=== PATIENT | male | born 1950 | race Hispanic/Latino ===

== ENCOUNTER 2020-11-30 10:47 | Inpatient (IN) | payer MEDICARE ==
[2020-11-26 13:16] LABS: BASOPHILS % 0.3 % (0.0-1.0); EOSINOPHILS # (AUTO) 0.1 (0.0-0.4); EOSINOPHILS % 0.6 % (0.0-6.0); HEMOGLOBIN 15.1 g/dL (14.0-18.0); LYMPHOCYTES # (AUTO) 1.5 (1.0-3.2); MEAN CORPUSCULAR HEMOGLOBIN 28.9 pg (28-32); MEAN CORPUSCULAR HGB CONC 35.1 g/dL (31-35); MEAN CORPUSCULAR VOLUME 82.2 fL (81-99); MONOCYTES # (AUTO) 0.8 (0.2-0.8); MONOCYTES % 8.1 % (4.4-11.3); NEUTROPHILS # (AUTO) 7.6 (2.1-6.9); NEUTROPHILS % 75.5 % (38.7-80.0); PLATELET COUNT 164 x10e3/uL (140-360); RED BLOOD COUNT 5.23 x10e6/uL (4.3-5.7); RED CELL DISTRIBUTION WIDTH 13.2 % (11.7-14.4)
[2020-11-26 13:33] LABS: ALANINE AMINOTRANSFERASE 8 IU/L (0-55); ALBUMIN 3.9 g/dL (3.5-5.0); ALBUMIN/GLOBULIN RATIO 1.3 (0.8-2.0); ALKALINE PHOSPHATASE 82 IU/L (40-150); ANION GAP 14.9 mmol/L (8-16); BLOOD UREA NITROGEN 17 mg/dL (7-26); BUN/CREATININE RATIO 19 (6-25); CALCIUM 9.1 mg/dL (8.4-10.2); CARBON DIOXIDE 24 mmol/L (22-29); CHLORIDE 103 mmol/L (98-107); CREATININE, SERUM 0.89 mg/dL (0.72-1.25); EST GLOMERULAR FILTRATION RATE > 60 ML/MIN (60-); GLUCOSE 105 mg/dL (74-118); POTASSIUM 3.9 mmol/L (3.5-5.1); SODIUM 138 mmol/L (136-145)
[~2020-11-30] VITALS: Ht 167.6 cm; Wt 94.3 kg
[2020-11-30] VITALS (9 sets, daily range): BP systolic 102–129; BP diastolic 70–86
[~2020-11-30 10:47] MED LIST: FINASTERIDE5 MG PO; FLOMAX0.4 MG PO; FLONASE ALLERG9.9 ML INH; HYDROCHLOROTHIA25 MG PO; LOSARTAN POTAS100 MG PO; MANNITOL 25% 12.5GM/50ML 50 ML ONE; METOPROLOL SUCC25 MG PO; OMEPRAZOLE40 MG PO; SIMVASTATIN20 MG PO; SINEMET 25-1001 EACH PO; SPIRIVA RESPIMAT INH; SYMBICORT 16010.2 GM INH; VENTOLIN HFA18 GM INH; VITAMIN D3125 MCG PO; XARELTO20 MG PO; ZINC PO
[2020-11-30] MEDS ORDERED: IOPAMIDOL 300MG/ML 50ML INFUS..BTL IV ONE (10:48)
[2020-11-30] MEDS ORDERED: LATANOPROST2.5 ML OP (10:59)
[2020-11-30] MEDS ORDERED: DORZOLAMIDE-TIM10 ML OP (11:01)
[2020-11-30] MEDS ORDERED: CEFTRIAXONE SOD 1 GM VIAL ONE (11:11)
[2020-11-30] MEDS ORDERED: GENTAMICIN 80MG/NS 100 ML 100 ML IV ONE (11:11)
[2020-11-30] MEDS ORDERED: SODIUM CHLORIDE 0.9% 50ML 50 ML ONE ×2 (11:11)
[2020-11-30] MEDS ORDERED: DEXAMETHASONE SOD PHOS INJ 4 MG/ML VIAL ONE (12:48)
[2020-11-30] MEDS ORDERED: PROPOFOL IV EMULSION 10 MG/ML 20 ML VIAL ONE (12:48)
[2020-11-30] MEDS ORDERED: SEVOFLURANE INHAL SOLN 250 ML PEN BTL ONE (12:48)
[2020-11-30] MEDS ORDERED: ROCURONIUM BROMIDE 10 MG/ML 5ML VIAL IV ONE (12:48)
[2020-11-30] MEDS ORDERED: POVIDONE IODINE 0.05% 0.05 % ML PO ONE (12:48)
[2020-11-30] MEDS ORDERED: NEOSTIGMINE 1 MG/ML 10ML VIAL ONE (12:48)
[2020-11-30] MEDS ORDERED: GLYCOPYRROLATE INJ 0.2 MG/ML VIAL ONE (12:48)
[2020-11-30] MEDS ORDERED: LIDOCAINE HCL 2% LOCAL INJ 5 ML SDV VIAL INJ ONE (12:48)
[2020-11-30] MEDS ORDERED: ONDANSETRON HCL INJ 2MG/ML 2ML 2 MG/ML VIAL ONE (12:48)
[2020-11-30] MEDS ORDERED: FENTANYL CITRATE/PF 100MCG/2 ML INJ ONE (13:10)
[2020-11-30] MEDS ORDERED: ONDANSETRON HCL INJ 2MG/ML 2ML 2 MG/ML VIAL IV PRN (14:00)
[2020-11-30] MEDS ORDERED: NALOXONE HCL INJ 0.4 MG/ML AMP IV PRN (14:00)
[2020-11-30] MEDS ORDERED: MORPHINE SULFATE 1 MG/ML 30ML PCA IV PRN (14:00)
[2020-11-30] MEDS ORDERED: DIPHENHYDRAMINE HCL INJ 50 MG/ML VIAL IM PRN (14:00)
[2020-11-30] MEDS: SODIUM CHLORIDE 0.9% 250ML IRRIG IR SCH ×3 (14:00→21:16)
[2020-11-30] MEDS ORDERED: ACETAMINOPHEN 1000 MG/100 ML IV PRN (14:00)
[2020-11-30] MEDS ORDERED: HYDROMORPHONE 1MG/1ML INJ ONE (15:56)
[2020-11-30] MEDS ORDERED: MORPHINE SULFATE 1 MG/ML 30ML PCA ONE (16:22)
[2020-11-30] MEDS ORDERED: SUGAMMADEX SODIUM 200 MG/2 ML VIAL IV ONE (16:48)
[2020-11-30] MEDS ORDERED: LORAZEPAM INJ 2 MG/ML VIAL ONE (16:53)
[2020-11-30 17:09] LABS: BASOPHILS % 0.3 % (0.0-1.0); EOSINOPHILS % 0.1 % (0.0-6.0); HEMATOCRIT 41.4 % (38.2-49.6); HEMOGLOBIN 14.4 g/dL (14.0-18.0); LYMPHOCYTES # (AUTO) 1.3 (1.0-3.2); LYMPHOCYTES % 8.4 % (18.0-39.1); MEAN CORPUSCULAR HEMOGLOBIN 29.4 pg (28-32); MEAN CORPUSCULAR HGB CONC 34.8 g/dL (31-35); MEAN CORPUSCULAR VOLUME 84.5 fL (81-99); MONOCYTES # (AUTO) 0.4 (0.2-0.8); MONOCYTES % 2.4 % (4.4-11.3); NEUTROPHILS # (AUTO) 13.8 (2.1-6.9); NEUTROPHILS % 88.3 % (38.7-80.0); PLATELET COUNT 131 x10e3/uL (140-360); RED CELL DISTRIBUTION WIDTH 13.2 % (11.7-14.4)
[2020-11-30 17:35] LABS: ANION GAP 12.1 mmol/L (8-16); BLOOD UREA NITROGEN 13 mg/dL (7-26); BUN/CREATININE RATIO 16 (6-25); CALCIUM 7.8 mg/dL (8.4-10.2); CARBON DIOXIDE 23 mmol/L (22-29); CHLORIDE 106 mmol/L (98-107); CREATININE, SERUM 0.83 mg/dL (0.72-1.25); EST GLOMERULAR FILTRATION RATE > 60 ML/MIN (60-); GLUCOSE 108 mg/dL (74-118); POTASSIUM 4.1 mmol/L (3.5-5.1); SODIUM 137 mmol/L (136-145)
[2020-11-30] MEDS: DOCUSATE SODIUM 100 MG CAP PO SCH (18:00)
[2020-11-30] MEDS: D5.45%NS/KCL 20MEQ 1,000 ML IV SCH (18:23)
[2020-11-30] MEDS ORDERED: HYDRALAZINE HCL 20 MG/ML VIAL IV PRN (19:45)
[2020-11-30] MEDS: CARBIDOPA/LEVODOPA 25/100 TAB PO SCH (20:51)
[2020-11-30] MEDS: CEFAZOLIN SOD 1 GM/NS 50ML 50 ML IV SCH (20:51)
[2020-11-30] MEDS: SIMVASTATIN 20 MG TAB PO SCH (20:51)
[2020-12-01] VITALS (8 sets, daily range): BP systolic 92–107; BP diastolic 55–79
[2020-12-01] MEDS: D5.45%NS/KCL 20MEQ 1,000 ML IV SCH ×3 (02:00→18:00)
[2020-12-01] MEDS: SODIUM CHLORIDE 0.9% 250ML IRRIG IR SCH ×2 (02:30→06:12)
[2020-12-01] MEDS: CEFAZOLIN SOD 1 GM/NS 50ML 50 ML IV SCH ×3 (04:36→20:35)
[2020-12-01 07:14] LABS: BASOPHILS % 0.1 % (0.0-1.0); HEMATOCRIT 39.6 % (38.2-49.6); HEMOGLOBIN 13.7 g/dL (14.0-18.0); LYMPHOCYTES # (AUTO) 0.6 (1.0-3.2); LYMPHOCYTES % 4.6 % (18.0-39.1); MEAN CORPUSCULAR HGB CONC 34.6 g/dL (31-35); MEAN CORPUSCULAR VOLUME 83.9 fL (81-99); MONOCYTES # (AUTO) 1.6 (0.2-0.8); MONOCYTES % 12.3 % (4.4-11.3); NEUTROPHILS % 82.6 % (38.7-80.0); PLATELET COUNT 135 x10e3/uL (140-360); RED BLOOD COUNT 4.72 x10e6/uL (4.3-5.7); RED CELL DISTRIBUTION WIDTH 13.2 % (11.7-14.4)
[2020-12-01 07:30] LABS: ANION GAP 11.2 mmol/L (8-16); CALCIUM 7.5 mg/dL (8.4-10.2); CREATININE, SERUM 1.24 mg/dL (0.72-1.25); POTASSIUM 4.2 mmol/L (3.5-5.1)
[2020-12-01] MEDS: DOCUSATE SODIUM 100 MG CAP PO SCH ×2 (07:55→16:24)
[2020-12-01] MEDS: CARBIDOPA/LEVODOPA 25/100 TAB PO SCH ×3 (07:55→20:35)
[2020-12-01] MEDS: LATANOPROST(OPTH) 2.5 ML BTL OP SCH (07:55)
[2020-12-01] MEDS: FAMOTIDINE 20 MG TAB PO SCH ×2 (07:55→16:24)
[2020-12-01] MEDS: SIMVASTATIN 20 MG TAB PO SCH (20:35)
[2020-12-02] VITALS (9 sets, daily range): BP systolic 103–129; BP diastolic 63–78
[2020-12-02] MEDS: D5.45%NS/KCL 20MEQ 1,000 ML IV SCH ×3 (00:26→20:21)
[2020-12-02 04:54] LABS: BASOPHILS % 0.2 % (0.0-1.0); EOSINOPHILS % 0.1 % (0.0-6.0); HEMATOCRIT 37.4 % (38.2-49.6); LYMPHOCYTES # (AUTO) 1.1 (1.0-3.2); LYMPHOCYTES % 8.9 % (18.0-39.1); MEAN CORPUSCULAR HEMOGLOBIN 29.3 pg (28-32); MEAN CORPUSCULAR HGB CONC 34.8 g/dL (31-35); MEAN CORPUSCULAR VOLUME 84.4 fL (81-99); MONOCYTES # (AUTO) 1.2 (0.2-0.8); MONOCYTES % 9.9 % (4.4-11.3); NEUTROPHILS # (AUTO) 9.6 (2.1-6.9); NEUTROPHILS % 80.5 % (38.7-80.0); PLATELET COUNT 120 x10e3/uL (140-360); RED BLOOD COUNT 4.43 x10e6/uL (4.3-5.7); RED CELL DISTRIBUTION WIDTH 13.2 % (11.7-14.4)
[2020-12-02 05:10] LABS: ANION GAP 12.6 mmol/L (8-16); CREATININE, SERUM 1.55 mg/dL (0.72-1.25); POTASSIUM 4.6 mmol/L (3.5-5.1)
[2020-12-02] MEDS: CEFAZOLIN SOD 1 GM/NS 50ML 50 ML IV SCH ×3 (05:28→20:22)
[2020-12-02] MEDS: FAMOTIDINE 20 MG TAB PO SCH ×2 (07:30→16:27)
[2020-12-02] MEDS: CARBIDOPA/LEVODOPA 25/100 TAB PO SCH ×3 (09:00→20:21)
[2020-12-02] MEDS: LATANOPROST(OPTH) 2.5 ML BTL OP SCH (09:00)
[2020-12-02] MEDS: DOCUSATE SODIUM 100 MG CAP PO SCH ×2 (09:00→18:00)
[2020-12-02] MEDS ORDERED: BISACODYL 10 MG SUPP PR ONE (13:30)
[2020-12-02] MEDS ORDERED: SIMETHICONE 80 MG CHEW PO PRN (18:15)
[2020-12-02] MEDS ORDERED: SIMETHICONE 80 MG CHEW PO ONE (18:15)
[2020-12-02] MEDS: SIMVASTATIN 20 MG TAB PO SCH (20:22)
[2020-12-03] VITALS (8 sets, daily range): BP systolic 120–134; BP diastolic 58–87
[2020-12-03] MEDS: D5.45%NS/KCL 20MEQ 1,000 ML IV SCH ×3 (04:47→22:23)
[2020-12-03] MEDS: CEFAZOLIN SOD 1 GM/NS 50ML 50 ML IV SCH ×3 (04:47→21:51)
[2020-12-03 04:48] LABS: BASOPHILS % 0.2 % (0.0-1.0); EOSINOPHILS # (AUTO) 0.1 (0.0-0.4); EOSINOPHILS % 0.7 % (0.0-6.0); HEMOGLOBIN 11.2 g/dL (14.0-18.0); LYMPHOCYTES # (AUTO) 0.9 (1.0-3.2); LYMPHOCYTES % 8.5 % (18.0-39.1); MEAN CORPUSCULAR HEMOGLOBIN 28.8 pg (28-32); MEAN CORPUSCULAR HGB CONC 33.9 g/dL (31-35); MEAN CORPUSCULAR VOLUME 84.8 fL (81-99); MONOCYTES # (AUTO) 0.9 (0.2-0.8); MONOCYTES % 9.2 % (4.4-11.3); NEUTROPHILS # (AUTO) 8.2 (2.1-6.9); NEUTROPHILS % 80.9 % (38.7-80.0); PLATELET COUNT 102 x10e3/uL (140-360); RED BLOOD COUNT 3.89 x10e6/uL (4.3-5.7); RED CELL DISTRIBUTION WIDTH 12.9 % (11.7-14.4)
[2020-12-03 05:09] LABS: ANION GAP 11.3 mmol/L (8-16); BLOOD UREA NITROGEN 17 mg/dL (7-26); BUN/CREATININE RATIO 20 (6-25); CALCIUM 7.7 mg/dL (8.4-10.2); CARBON DIOXIDE 22 mmol/L (22-29); CHLORIDE 105 mmol/L (98-107); CREATININE, SERUM 0.85 mg/dL (0.72-1.25); EST GLOMERULAR FILTRATION RATE > 60 ML/MIN (60-); GLUCOSE 108 mg/dL (74-118); POTASSIUM 4.3 mmol/L (3.5-5.1); SODIUM 134 mmol/L (136-145)
[2020-12-03] MEDS: FAMOTIDINE 20 MG TAB PO SCH ×2 (07:30→16:30)
[2020-12-03] MEDS ORDERED: ACETAMINOPHEN/CODEINE 300MG - 30MG TAB PO PRN (07:30)
[2020-12-03] MEDS ORDERED: BISACODYL 10 MG SUPP PR PRN (07:30)
[2020-12-03] MEDS ORDERED: MORPHINE SULFATE INJ 2 MG/ML SYR IV PRN (07:30)
[2020-12-03] MEDS ORDERED: TAMSULOSIN HCL 0.4 MG CAP PO ONE (08:00)
[2020-12-03] MEDS ORDERED: BISACODYL 10 MG SUPP PR ONE (08:00)
[2020-12-03] MEDS ORDERED: ONDANSETRON HCL 4 MG ORAL DISINTEGRATING TAB PO PRN (08:45)
[2020-12-03] MEDS: LATANOPROST(OPTH) 2.5 ML BTL OP SCH (09:00)
[2020-12-03] MEDS: CARBIDOPA/LEVODOPA 25/100 TAB PO SCH ×3 (09:00→21:51)
[2020-12-03] MEDS: FINASTERIDE 5 MG TAB PO SCH (11:00)
[2020-12-03] MEDS: DOCUSATE SODIUM 100 MG CAP PO SCH ×2 (11:00→17:00)
[2020-12-03] MEDS: CHLORPROMAZINE HCL 25 MG TAB PO PRN (14:40)
[2020-12-03] MEDS: TAMSULOSIN HCL 0.4 MG CAP PO SCH (21:51)
[2020-12-03] MEDS: SIMVASTATIN 20 MG TAB PO SCH (21:51)
[2020-12-03] MEDS ORDERED: ONDANSETRON HCL INJ 2MG/ML 2ML 2 MG/ML VIAL IV PRN (23:00)
[2020-12-04] VITALS (7 sets, daily range): BP systolic 139–151; BP diastolic 76–84
[2020-12-04] MEDS: D5.45%NS/KCL 20MEQ 1,000 ML IV SCH ×4 (02:00→23:19)
[2020-12-04] MEDS: CEFAZOLIN SOD 1 GM/NS 50ML 50 ML IV SCH ×3 (04:48→20:32)
[2020-12-04 04:49] LABS: BASOPHILS % 0.2 % (0.0-1.0); EOSINOPHILS # (AUTO) 0.1 (0.0-0.4); EOSINOPHILS % 1.1 % (0.0-6.0); HEMATOCRIT 31.3 % (38.2-49.6); HEMOGLOBIN 10.9 g/dL (14.0-18.0); LYMPHOCYTES # (AUTO) 0.7 (1.0-3.2); LYMPHOCYTES % 8.1 % (18.0-39.1); MEAN CORPUSCULAR HEMOGLOBIN 28.8 pg (28-32); MEAN CORPUSCULAR HGB CONC 34.8 g/dL (31-35); MEAN CORPUSCULAR VOLUME 82.8 fL (81-99); MONOCYTES # (AUTO) 0.9 (0.2-0.8); MONOCYTES % 9.6 % (4.4-11.3); NEUTROPHILS # (AUTO) 7.1 (2.1-6.9); NEUTROPHILS % 80.7 % (38.7-80.0); PLATELET COUNT 104 x10e3/uL (140-360); RED BLOOD COUNT 3.78 x10e6/uL (4.3-5.7); RED CELL DISTRIBUTION WIDTH 12.7 % (11.7-14.4)
[2020-12-04 05:07] LABS: ANION GAP 9.1 mmol/L (8-16); BLOOD UREA NITROGEN 9 mg/dL (7-26); BUN/CREATININE RATIO 13 (6-25); CALCIUM 7.9 mg/dL (8.4-10.2); CARBON DIOXIDE 24 mmol/L (22-29); CHLORIDE 105 mmol/L (98-107); CREATININE, SERUM 0.72 mg/dL (0.72-1.25); EST GLOMERULAR FILTRATION RATE > 60 ML/MIN (60-); GLUCOSE 106 mg/dL (74-118); POTASSIUM 4.1 mmol/L (3.5-5.1); SODIUM 134 mmol/L (136-145)
[2020-12-04] MEDS: FAMOTIDINE 20 MG TAB PO SCH ×2 (07:30→15:55)
[2020-12-04] MEDS: DOCUSATE SODIUM 100 MG CAP PO SCH ×2 (09:00→15:55)
[2020-12-04] MEDS: CARBIDOPA/LEVODOPA 25/100 TAB PO SCH ×3 (09:44→20:32)
[2020-12-04] MEDS: LATANOPROST(OPTH) 2.5 ML BTL OP SCH (09:44)
[2020-12-04] MEDS: FINASTERIDE 5 MG TAB PO SCH (09:44)
[2020-12-04] MEDS ORDERED: BISACODYL 10 MG SUPP PR ONE (10:45)
[2020-12-04] MEDS ORDERED: equate allergy PO (16:13)
[2020-12-04] MEDS: TAMSULOSIN HCL 0.4 MG CAP PO SCH (20:32)
[2020-12-04] MEDS: SIMVASTATIN 20 MG TAB PO SCH (20:32)
[2020-12-05] VITALS (8 sets, daily range): BP systolic 123–153; BP diastolic 56–86
[2020-12-05] MEDS: D5.45%NS/KCL 20MEQ 1,000 ML IV SCH ×4 (02:00→23:00)
[2020-12-05] MEDS: CEFAZOLIN SOD 1 GM/NS 50ML 50 ML IV SCH ×3 (04:54→20:24)
[2020-12-05] MEDS: HYDROCODONE/APAP 7.5MG-325MG 1 EA TAB PO PRN (04:59)
[2020-12-05] MEDS: CARBIDOPA/LEVODOPA 25/100 TAB PO SCH ×3 (08:09→20:24)
[2020-12-05] MEDS: FINASTERIDE 5 MG TAB PO SCH (08:09)
[2020-12-05] MEDS: LATANOPROST(OPTH) 2.5 ML BTL OP SCH (08:09)
[2020-12-05] MEDS: FAMOTIDINE 20 MG TAB PO SCH ×2 (08:09→16:31)
[2020-12-05] MEDS: DOCUSATE SODIUM 100 MG CAP PO SCH ×2 (08:09→16:31)
[2020-12-05] MEDS ORDERED: ALBUTEROL SULFATE HFA 8GM INHALATION AEROSOL INH PRN (08:45)
[2020-12-05] MEDS ORDERED: FLUTICASONE PROPIONATE NASAL SPRAY NS PRN (09:00)
[2020-12-05] MEDS: BUDESONIDE/FORMOTEROL 160/4.5MCG INHALER INH SCH ×2 (09:00→18:57)
[2020-12-05] MEDS: TIOTROPIUM 18 MCG INH POWDER INH SCH (09:00)
[2020-12-05] MEDS: SIMVASTATIN 20 MG TAB PO SCH (20:24)
[2020-12-05] MEDS: TAMSULOSIN HCL 0.4 MG CAP PO SCH (20:24)
[2020-12-06] VITALS (8 sets, daily range): BP systolic 128–147; BP diastolic 73–89
[2020-12-06] MEDS: D5.45%NS/KCL 20MEQ 1,000 ML IV SCH ×4 (00:29→18:00)
[2020-12-06] MEDS: CEFAZOLIN SOD 1 GM/NS 50ML 50 ML IV SCH ×3 (04:24→20:32)
[2020-12-06] MEDS: CHLORPROMAZINE HCL 25 MG TAB PO PRN ×2 (04:43→10:43)
[2020-12-06 05:18] LABS: ALANINE AMINOTRANSFERASE 9 IU/L (0-55); ALBUMIN 2.7 g/dL (3.5-5.0); ALBUMIN/GLOBULIN RATIO 0.9 (0.8-2.0); ALKALINE PHOSPHATASE 50 IU/L (40-150); BLOOD UREA NITROGEN 6 mg/dL (7-26); BUN/CREATININE RATIO 8 (6-25); CALCIUM 8.1 mg/dL (8.4-10.2); CARBON DIOXIDE 23 mmol/L (22-29); CHLORIDE 104 mmol/L (98-107); CREATININE, SERUM 0.72 mg/dL (0.72-1.25); EST GLOMERULAR FILTRATION RATE > 60 ML/MIN (60-); GLUCOSE 107 mg/dL (74-118); MAGNESIUM 1.9 MG/DL (1.3-2.1); PHOSPHORUS 2.8 MG/DL (2.3-4.7); SODIUM 134 mmol/L (136-145)
[2020-12-06] MEDS: FAMOTIDINE 20 MG TAB PO SCH ×2 (07:23→16:04)
[2020-12-06] MEDS: BUDESONIDE/FORMOTEROL 160/4.5MCG INHALER INH SCH ×2 (07:46→19:08)
[2020-12-06] MEDS: TIOTROPIUM 18 MCG INH POWDER INH SCH (07:46)
[2020-12-06] MEDS: FINASTERIDE 5 MG TAB PO SCH (08:09)
[2020-12-06] MEDS: DOCUSATE SODIUM 100 MG CAP PO SCH ×2 (08:09→16:04)
[2020-12-06] MEDS: CARBIDOPA/LEVODOPA 25/100 TAB PO SCH ×3 (08:09→20:32)
[2020-12-06] MEDS: LATANOPROST(OPTH) 2.5 ML BTL OP SCH (08:09)
[2020-12-06] MEDS: SIMVASTATIN 20 MG TAB PO SCH (20:32)
[2020-12-06] MEDS: TAMSULOSIN HCL 0.4 MG CAP PO SCH (20:32)
[2020-12-07] VITALS (8 sets, daily range): BP systolic 140–154; BP diastolic 74–84
[2020-12-07] MEDS: D5.45%NS/KCL 20MEQ 1,000 ML IV SCH ×3 (01:20→17:16)
[2020-12-07] MEDS: CEFAZOLIN SOD 1 GM/NS 50ML 50 ML IV SCH ×3 (04:22→20:16)
[2020-12-07] MEDS: CHLORPROMAZINE HCL 25 MG TAB PO PRN ×2 (04:22→15:52)
[2020-12-07] MEDS: DOCUSATE SODIUM 100 MG CAP PO SCH ×2 (08:30→17:16)
[2020-12-07] MEDS: FINASTERIDE 5 MG TAB PO SCH (08:30)
[2020-12-07] MEDS: FAMOTIDINE 20 MG TAB PO SCH (08:30)
[2020-12-07] MEDS: CARBIDOPA/LEVODOPA 25/100 TAB PO SCH ×3 (08:30→20:17)
[2020-12-07] MEDS: LATANOPROST(OPTH) 2.5 ML BTL OP SCH (08:30)
[2020-12-07] MEDS: BUDESONIDE/FORMOTEROL 160/4.5MCG INHALER INH SCH ×2 (08:48→20:00)
[2020-12-07] MEDS: TIOTROPIUM 18 MCG INH POWDER INH SCH (08:48)
[2020-12-07] MEDS: HYDROCODONE/APAP 7.5MG-325MG 1 EA TAB PO PRN ×2 (12:25→20:18)
[2020-12-07] MEDS: PANTOPRAZOLE 40 MG 10ML VIAL IV SCH (17:16)
[2020-12-07] MEDS: METOCLOPRAMIDE HCL 10 MG/2ML VIAL IV SCH (18:14)
[2020-12-07 18:20] LABS: AMYLASE 83 U/L (25-125); ANION GAP 11.9 mmol/L (8-16); BLOOD UREA NITROGEN 8 mg/dL (7-26); BUN/CREATININE RATIO 11 (6-25); CALCIUM 7.9 mg/dL (8.4-10.2); CARBON DIOXIDE 22 mmol/L (22-29); CHLORIDE 103 mmol/L (98-107); CREATININE, SERUM 0.73 mg/dL (0.72-1.25); EST GLOMERULAR FILTRATION RATE > 60 ML/MIN (60-); GLUCOSE 116 mg/dL (74-118); LIPASE 349 U/L (8-78); POTASSIUM 3.9 mmol/L (3.5-5.1); SODIUM 133 mmol/L (136-145)
[2020-12-07] MEDS: SIMVASTATIN 20 MG TAB PO SCH (20:17)
[2020-12-07] MEDS: TAMSULOSIN HCL 0.4 MG CAP PO SCH (20:17)
[2020-12-08] VITALS (8 sets, daily range): BP systolic 122–140; BP diastolic 67–86
[2020-12-08] MEDS: METOCLOPRAMIDE HCL 10 MG/2ML VIAL IV SCH ×4 (00:31→17:16)
[2020-12-08] MEDS: D5.45%NS/KCL 20MEQ 1,000 ML IV SCH ×3 (00:33→17:31)
[2020-12-08 04:37] LABS: BASOPHILS % 0.2 % (0.0-1.0); EOSINOPHILS # (AUTO) 0.2 (0.0-0.4); EOSINOPHILS % 3.3 % (0.0-6.0); HEMATOCRIT 31.1 % (38.2-49.6); HEMOGLOBIN 10.8 g/dL (14.0-18.0); LYMPHOCYTES % 15.7 % (18.0-39.1); MEAN CORPUSCULAR HGB CONC 34.7 g/dL (31-35); MEAN CORPUSCULAR VOLUME 83.4 fL (81-99); MONOCYTES # (AUTO) 0.6 (0.2-0.8); MONOCYTES % 9.3 % (4.4-11.3); NEUTROPHILS # (AUTO) 4.4 (2.1-6.9); NEUTROPHILS % 70.8 % (38.7-80.0); PLATELET COUNT 159 x10e3/uL (140-360); RED BLOOD COUNT 3.73 x10e6/uL (4.3-5.7)
[2020-12-08 04:52] LABS: ANION GAP 11.7 mmol/L (8-16); BLOOD UREA NITROGEN 7 mg/dL (7-26); BUN/CREATININE RATIO 9 (6-25); CALCIUM 7.8 mg/dL (8.4-10.2); CARBON DIOXIDE 23 mmol/L (22-29); CHLORIDE 105 mmol/L (98-107); CREATININE, SERUM 0.74 mg/dL (0.72-1.25); EST GLOMERULAR FILTRATION RATE > 60 ML/MIN (60-); GLUCOSE 110 mg/dL (74-118); POTASSIUM 3.7 mmol/L (3.5-5.1); SODIUM 136 mmol/L (136-145)
[2020-12-08] MEDS: CEFAZOLIN SOD 1 GM/NS 50ML 50 ML IV SCH ×3 (05:37→20:18)
[2020-12-08] MEDS: HYDROCODONE/APAP 7.5MG-325MG 1 EA TAB PO PRN ×2 (05:37→10:14)
[2020-12-08] MEDS: BUDESONIDE/FORMOTEROL 160/4.5MCG INHALER INH SCH ×2 (06:57→19:40)
[2020-12-08] MEDS: TIOTROPIUM 18 MCG INH POWDER INH SCH (06:57)
[2020-12-08] MEDS: PANTOPRAZOLE 40 MG 10ML VIAL IV SCH ×2 (08:53→17:16)
[2020-12-08] MEDS: LATANOPROST(OPTH) 2.5 ML BTL OP SCH (08:55)
[2020-12-08] MEDS: FINASTERIDE 5 MG TAB PO SCH (08:55)
[2020-12-08] MEDS: DOCUSATE SODIUM 100 MG CAP PO SCH ×2 (08:55→17:16)
[2020-12-08] MEDS: CARBIDOPA/LEVODOPA 25/100 TAB PO SCH ×3 (08:56→20:18)
[2020-12-08] MEDS: CHLORPROMAZINE HCL 25 MG TAB PO PRN (11:09)
[2020-12-08] MEDS: TAMSULOSIN HCL 0.4 MG CAP PO SCH (20:18)
[2020-12-08] MEDS: SIMVASTATIN 20 MG TAB PO SCH (20:18)
[2020-12-08] MEDS ORDERED: Morphine Sulfate Inj IV (20:40)
[2020-12-08] MEDS ORDERED: FLOMAX0.4 MG PO (20:40)
[2020-12-08] MEDS ORDERED: DIPHENHYDR50 MG/1 M1 IM (20:40)
[2020-12-08] MEDS ORDERED: NALOXONE HCL IV (20:40)
[2020-12-08] MEDS ORDERED: METOCLOPRAMID5 MG/ML IV (20:40)
[2020-12-08] MEDS ORDERED: HYDROCODON-ACE1 EA12 PO (20:40)
[2020-12-08] MEDS ORDERED: CEFAZOLIN SODIUM1 GM IV (20:40)
[2020-12-08] MEDS ORDERED: DULCOLAX SUPP10 MG PR (20:40)
[2020-12-08] MEDS ORDERED: COLACE100 MG PO (20:40)
[2020-12-08] MEDS ORDERED: D5%-1/2NS-10 MEQ/100 IV (20:40)
[2020-12-08] MEDS ORDERED: ONDANSETRON4 MG/2 M1 IV (20:40)
[2020-12-08] MEDS ORDERED: SIMETHICONE80 MG PO (20:40)
[2020-12-08] MEDS ORDERED: HYDRALAZIN20 MG/1 ML IV (20:40)
[2020-12-08] MEDS ORDERED: PROTONIX IV40 MG IV (20:40)
[2020-12-08] MEDS ORDERED: THORAZINE25 MG PO (20:46)
[2020-12-09 00:28] VITALS: BP 135/91
== END 2020-12-09 00:11 | DRG 656 ==
LOC: OR 10:47 → PACU V 13:50 → ICU 17:42 → MED/SURG 12-01 02:40
PROVIDERS: ADMIT Internal Medicine; ATTEND Internal Medicine
PROC: 0T788ZZ Dilation of Bilateral Ureters, Via Natural or Artificial Opening Endoscopic (ICD-10-PCS; 2020-11-30)
PROC: BT141ZZ Fluoroscopy of Kidneys, Ureters and Bladder using Low Osmolar Contrast (ICD-10-PCS; 2020-11-30)
PROC: 0TB00ZZ Excision of Right Kidney, Open Approach (ICD-10-PCS; principal; 2020-11-30 13:00)
DX: C64.1 Malignant neoplasm of right kidney, except renal pelvis (principal); K85.90 Acute pancreatitis without necrosis or infection, unspecified; I48.20 Chronic atrial fibrillation, unspecified; K91.89 Other postprocedural complications and disorders of digestive system; K56.7 Ileus, unspecified; Z20.822 Contact with and (suspected) exposure to COVID-19; Z79.01 Long term (current) use of anticoagulants; E66.9 Obesity, unspecified; Z68.33 Body mass index [BMI] 33.0-33.9, adult; R13.10 Dysphagia, unspecified; M19.011 Primary osteoarthritis, right shoulder; G20 Parkinson's disease; F79 Unspecified intellectual disabilities; I10 Essential (primary) hypertension
CPT/HCPCS: 36415; 71045; 71046; 74018; 74420; 80048; 80053; 82150; 83690; 83735; 84100; 85025; 86850; 86900; 86920; 88300; 88302; 88309; 88329; 93005; 94664; 97139; C1758; J0690; J0696; J1100; J1170; J1580; J2001; J2060; J2150; J2270; J2405; J2710; J2765; J3010; Q0162; U0002

== ENCOUNTER → 2021-02-16 | Outpatient (CLI) | payer MEDICARE ==
[~2021-02-16] MED LIST changes: +CEFAZOLIN SODIUM1 GM IV; +COLACE100 MG PO; +D5%-1/2NS-10 MEQ/100 IV; +DIPHENHYDR50 MG/1 M1 IM; +DORZOLAMIDE-TIM10 ML OP; +DULCOLAX SUPP10 MG PR; +HYDRALAZIN20 MG/1 ML IV; +HYDROCODON-ACE1 EA12 PO; +LATANOPROST2.5 ML OP; -MANNITOL 25% 12.5GM/50ML 50 ML ONE; +METOCLOPRAMID5 MG/ML IV; +Morphine Sulfate Inj IV; +NALOXONE HCL IV; +ONDANSETRON4 MG/2 M1 IV; +PROTONIX IV40 MG IV; +SIMETHICONE80 MG PO; +THORAZINE25 MG PO; +equate allergy PO
== END ==
LOC: US 11:30
PROVIDERS: ATTEND Urology
DX: C64.1 Malignant neoplasm of right kidney, except renal pelvis (principal)
CPT/HCPCS: 71046; 76770

== ENCOUNTER → 2021-05-28 | Outpatient (CLI) | payer MEDICARE | LOC: US 11:40 | PROVIDERS: ATTEND Urology | DX: C64.1 Malignant neoplasm of right kidney, except renal pelvis (principal) | CPT/HCPCS: 76770 ==

== ENCOUNTER → 2021-11-23 | Outpatient (CLI) | payer MEDICARE | LOC: US 14:11 | PROVIDERS: ATTEND Urology | DX: C64.1 Malignant neoplasm of right kidney, except renal pelvis (principal) | CPT/HCPCS: 71046; 76770 ==

== ENCOUNTER 2022-11-23 16:44 | Emergency (ER) | payer MEDICARE ==
[~2022-11-23] VITALS: Ht 167.6 cm; Wt 94.3 kg
[2022-11-23 17:00] VITALS: O2SAT 96
[2022-11-23] MEDS ORDERED: PREDNISONE20 MG PO (19:17)
[2022-11-23] MEDS ORDERED: NAPROSYN500 MG PO (19:17)
== END 2022-11-23 19:27 | disposition home or self-care (01) ==
LOC: ER 16:56
DX: M79.675 Pain in left toe(s) (principal); M79.89 Other specified soft tissue disorders; I10 Essential (primary) hypertension; E78.5 Hyperlipidemia, unspecified; K21.9 Gastro-esophageal reflux disease without esophagitis; G20 Parkinson's disease; Z86.73 Personal history of transient ischemic attack (TIA), and cerebral infarction without residual deficits
CPT/HCPCS: 99283